=== PATIENT | male | born 1945 | race Caucasian/White ===

== ENCOUNTER 2018-10-17 14:55 | Inpatient (IN) | payer OTHER ==
[2018-10-17 16:06] LABS: Absolute Lymphocytes (CBC) 3.3 K/uL (0.7-4.9); Absolute Neutrophil 11.1 K/uL (1.8-8.0); Basophils % 0.7 % (0-1.3); Eosinophils % 31.6 % (0-4.4); Hematocrit 46.1 % (39.6-49.0); Lymphocytes % 14.4 % (15.3-44.8); MPV 9.2 fL (7.6-11.3); Monocytes % 4.5 % (3.3-12.3); RBC Red Blood Cell Count 5.27 M/uL (4.33-5.43)
[2018-10-17] MEDS ORDERED: METHYLPREDNISOLONE 125 MG INJ ONE (16:09)
[2018-10-17] MEDS ORDERED: NA CHLORIDE 0.9% 500 ML ONE (16:10)
[2018-10-17] MEDS ORDERED: DIPHENHYDRAMINE 50 MG/ML VIAL ONE (16:10)
[2018-10-17] MEDS ORDERED: FAMOTIDINE 20 MG/2 ML VIAL IV ONE (16:10)
[2018-10-17 16:23] LABS: Albumin 3.5 g/dL (3.4-5.0); Bilirubin Direct 0.2 mg/dL (0-0.2); Bilirubin Total 0.9 mg/dL (0.2-1.0); Potassium 4.2 mmol/L (3.5-5.1)
[2018-10-17 16:25] LABS: Magnesium 1.3 mg/dL (1.8-2.4)
--- NOTE | 2018-10-17 17:19 | RAD REPORT ---
EXAM DESCRIPTION: CT - Abdomen Pelvis Wo Contrast - 10/17/2018 5:07 pm CLINICAL HISTORY: Abdominal pain, vomiting, diarrhea COMPARISON: None. TECHNIQUE: Axial [address] imaging of the abdomen and pelvis was performed without IV contrast. No IV contrast was given because of allergy, abnormal renal function, patient refusal or physician re quest. No oral contrast administered. All CT scans are performed using dose optimization technique as appropriate and may include automated exposure control or mA/KV adjustment according to patient size. FINDINGS: No suspicious findings in the lung bases. The liver, spleen and pancreas show no suspicious findings on non-contrast imaging. Gallbladder and b iliary tree are also without suspicious finding. No hydronephrosis or suspicious renal mass. No significant adrenal finding. Isodense renal masses an d pyelonephritis cannot be excluded in the absence of IV contrast. Urinary bladder shows no suspiciou s finding. No gastric dilatation or wall thickening. Small hiatal hernia is present. Large and small bowel are n ot dilated. There are several fluid-filled small bowel loops and fluid in the right-side of the colon . The appendix is normal. No free air, free fluid or inflammatory stranding. No hernia, mass or bulky lymphadenopathy. No suspicious bony findings. IMPRESSION: No obstruction, free air or surgically emergent finding. Nondilated fluid-filled distal small bowel and right-sided colon. Findings are nonspecific. Nonspecif ic enteritis is possible. Full assessment is limited is the absence of IV contrast.
[2018-10-17] MEDS ORDERED: NA CHLORIDE 0.9% 1,000 ML ONE (17:29)
[2018-10-17] MEDS ORDERED: Magnesium Sulfate 2gm IVPB 2 G/50 ML BAG IV ONE (17:29)
--- NOTE | 2018-10-17 17:37 | ER ---
Nurse's Notes [facility] Name: Rajeev Tim Age: 73 yrs Sex: Male : 1945 Arrival Date: 10/17/2018 Time: 14:57 Bed 15 Private MD: Rajeev Ontiveros Diagnosis: Diarrhea, unspecified;Hypomagnesemia;Elevated white blood cell count Presentation: 10/17 15:13 Presenting complaint: Patient states: I have had diarrhea for the last two weeks, la1 vomited x1, two days ago I began having an itchy rash on my arms and legs and my lips started swelling today as well. Transition of care: patient was not received from another setting of care. Onset of symptoms was October 17, 2018. Risk Assessment: Do you want to hurt yourself or someone else? Patient reports no desire to harm self or others. Initial Sepsis Screen: Does the patient meet any 2 criteria? No. Patient's initial sepsis screen is negative. Does the patient have a suspected source of infection? No. Patient's initial sepsis screen is negative. Care prior to arrival: None. 15:13 Method Of Arrival: Ambulatory la1 15:13 Acuity: JACQUELINE 3 la1 Historical: - Allergies: 15:14 No Known Allergies; la1 - PMHx: 15:14 Diabetes - NIDDM; Hypertension; la1 - Immunization history:: Adult Immunizations up to date. - Social history:: Smoking status: Patient/guardian denies using tobacco. - Ebola Screening: : No symptoms or risks identified at this time. Screenin:15 Abuse screen: Denies threats or abuse. Denies injuries from another. Nutritional bp screening: No deficits noted. Tuberculosis screening: No symptoms or risk factors identified. Fall Risk None identified. Assessment: 15:15 General: Appears in no apparent distress. comfortable, slender, Behavior is calm, bp cooperative, appropriate for age. Pain: Denies pain. Neuro: Level of Consciousness is awake, alert, obeys commands, Oriented to person, place, time, situation, Appropriate for age. Cardiovascular: No deficits noted. Respiratory: Airway is patent Respiratory effort is even, unlabored, Respiratory pattern is regular, symmetrical. GI: Reports diarrhea. : No signs and/or symptoms were reported regarding the genitourinary system. EENT: No deficits noted. Derm: Rash noted that is red, raised. Musculoskeletal: Swelling present in right hand and left hand. 16:57 Reassessment: PT TO CT WITH SHARED SERVICES AND OUTSOURCING MANAGER. bp 19:00 Reassessment: BED ASSIGNED, ADMIT ON HOLD FOR SHIFT CHANGE. bp 19:15 Reassessment: Patient appears in no apparent distress at this time. No changes from jd3 previously documented assessment. Patient and/or family updated on plan of care and expected duration. Pain level reassessed. Patient is alert, oriented x 3, equal unlabored respirations, skin warm/dry/pink. Patient states feeling better. 20:08 Reassessment: Patient appears in no apparent distress at this time. Patient and/or jd3 family updated on plan of care and expected duration. Pain level reassessed. Patient is alert, oriented x 3, equal unlabored respirations, skin warm/dry/pink. Patient states feeling better. Vital Signs: 15:14 BP 143 / 81; Pulse 96; Resp 18; Temp 97.5; Pulse Ox 98% on R/A; Weight 79.83 kg; Height la1 6 ft. 0 in. (182.88 cm); 16:15 BP 155 / 83; Pulse 80; Resp 16; Pulse Ox 99% ; bp 18:00 BP 133 / 67; Pulse 76; Resp 16; Pulse Ox 99% ; bp 19:00 BP 106 / 77; Pulse 78; Resp 14; Pulse Ox 99% ; bp 20:08 BP 135 / 70; Pulse 75; Resp 16 S; Pulse Ox 97% on R/A; jd3 15:14 Body Mass Index 23.87 (79.83 kg, 182.88 cm) la1 ED Course: 14:57 Patient arrived in ED. as 14:57 Rajeev Ontiveros DO is Private Physician. as 15:13 Triage completed. la1 15:15 Arm band placed on left wrist. la1 15:15 Patient has correct armband on for positive identification. Placed in gown. Bed in low bp position. Call light in reach. Side rails up X2. 15:16 Amrik Toth PA is PHCP. cp 15:16 David Carrillo MD is Attending Physician. cp 15:31 Paco Lopez, TIFFANIE is Primary Nurse. bp 15:50 Inserted saline lock: 20 gauge in right antecubital area, using aseptic technique. bp wrist, using aseptic technique. Blood collected. 17:06 CT completed. Patient moved to CT. Patient moved back from CT. mw3 17:07 CT Abd/Pelvis - Without Cont: no oral contrast In Process Unspecified. EDMS 17:35 Laura Matute MD is Hospitalizing Provider. cp 19:57 No provider procedures requiring assistance completed. Patient admitted, IV remains in jd3 place. Administered Medications: 16:00 Drug: SOLU-Medrol 125 mg Route: IVP; Site: right antecubital; bp 16:56 Follow up: Response: No adverse reaction bp 16:00 Drug: Pepcid 20 mg Route: IVP; Site: right antecubital; bp 16:56 Follow up: Response: No adverse reaction bp 16:00 Drug: Benadryl 50 mg Route: IVP; Site: right antecubital; bp 16:56 Follow up: Response: No adverse reaction bp 16:00 Drug: NS 0.9% 500 ml Route: IV; Rate: bolus; Site: right antecubital; bp 20:12 Follow up: Response: No adverse reaction; IV Status: Completed infusion jd3 17:00 Drug: NS 0.9% 1000 ml Route: IV; Rate: 100 ml/hr; Site: right antecubital; bp 18:00 Follow up: IV Status: Completed infusion; IV Intake: 500ml bp 17:00 Drug: Magnesium Sulfate 2 grams Route: IVPB; Infused Over: 2 hrs; Site: right bp antecubital; 18:59 Follow up: IV Status: Completed infusion; IV Intake: 50ml bp 17:45 Drug: metroNIDAZOLE 500 mg Volume: 100 ml; Route: IVPB; Infused Over: 30 mins; Site: bp right antecubital; 20:09 Follow up: Response: No adverse reaction; IV Status: Completed infusion jd3 19:07 Drug: Cipro 400 mg Volume: 200 ml; Route: IVPB; Infused Over: 60 mins; Site: right jd3 antecubital; 20:11 Follow up: Response: No adverse reaction; IV Status: Completed infusion jd3 Intake: 18:00 IV: 500ml; Total: 500ml. bp 18:59 IV: 50ml; Total: 550ml. bp Outcome: 17:36 Decision to Hospitalize by Provider. cp 19:57 Admitted to Med/surg accompanied by tech, via stretcher, room 209, with chart, Report jd3 called to Anjelica MORENO 19:57 Condition: stable 19:57 Instructed on the need for admit, Demonstrated understanding of instructions. 20:13 Patient left the ED. hugo Signatures: Dispatcher [employer] Margot Ellis Lee RN RN la1 Amrik Toth PA PA cp Davies, Jonathon, RN RN jd3 Paco Lopez RN RN bp Willis, Michelle mw3 Corrections: (The following items were deleted from the chart) 15:15 15:13 Presenting complaint: Patient states: I have had diarrhea for the last two weeks, la1 vomited x1 la1
--- NOTE | 2018-10-17 17:37 | EDPHYS ---
Physician Documentation [facility] Name: Rajeev Tim Age: 73 yrs Sex: Male : 1945 Arrival Date: 10/17/2018 Time: 14:57 Bed 15 Private MD: Rajeev Ontiveros ED Physician David Carrillo HPI: 10/17 15:35 This 73 yrs old Male presents to ER via Ambulatory with complaints of cp Diarrhea. 15:35 The patient presents to the emergency department with diarrhea, 4-5 episodes per day. cp 15:35 Onset: The symptoms/episode began/occurred 2 week(s) ago, started after eating at [employer] restaurant. Associated signs and symptoms: Pertinent positives:. 15:35 The patient's rash thought to be caused by an unknown cause. cp 15:35 The rash is located on the right hand, left hand, right arm and left arm. The rash can cp be described as itchy. Associated signs and symptoms: Pertinent positives: swelling of lips, swelling of hands, Pertinent negatives: difficulty breathing, fever. Possible causes: unknown. Historical: - Allergies: 15:14 No Known Allergies; la1 - PMHx: 15:14 Diabetes - NIDDM; Hypertension; la1 - Immunization history:: Adult Immunizations up to date. - Social history:: Smoking status: Patient/guardian denies using tobacco. - Ebola Screening: : No symptoms or risks identified at this time. ROS: 15:40 Constitutional: Negative for body aches, chills, fever, poor PO intake. cp 15:40 Eyes: Negative for injury, pain, redness, and discharge. cp 15:40 ENT: Negative for drainage from ear(s), ear pain, sore throat, difficulty swallowing, difficulty handling secretions. 15:40 Cardiovascular: Negative for chest pain, edema, palpitations. 15:40 Respiratory: Negative for cough, shortness of breath, wheezing. 15:40 Abdomen/GI: Positive for diarrhea, Negative for nausea and vomiting, constipation, anorexia, black/tarry stool, rectal bleeding. 15:40 : Negative for urinary symptoms. 15:40 Skin: Positive for rash, swelling, of the right hand, left hand and mouth. 15:40 Neuro: Negative for altered mental status, headache, weakness. 15:40 All other systems are negative. Exam: 15:45 Constitutional: The patient appears in no acute distress, alert, awake, cp non-diaphoretic, non-toxic, well developed, well nourished. 15:45 Eyes: Pupils equal round and reactive to light, extra-ocular motions intact. Lids and cp lashes normal. Conjunctiva and sclera are non-icteric and not injected. Cornea within normal limits. Periorbital areas with no swelling, redness, or edema. 15:45 Head/face: Noted is swelling, that is mild, of the mouth. 15:45 ENT: External ear(s): are unremarkable, Ear canal(s): are normal, clear, TM's: are cp normal, Nose: is normal, Mouth: Lips: mild swelling upper lip, Posterior pharynx: Airway: no evidence of obstruction, patent, swelling, is not appreciated, erythema, is not appreciated, exudate, is not appreciated, Voice: is normal. 15:45 Neck: ROM/movement: is normal, is supple, without pain, no range of motions limitations, no nuchal rigidity. 15:45 Chest/axilla: Inspection: normal, Palpation: is normal, no crepitus, no tenderness. 15:45 Cardiovascular: Rate: normal, Rhythm: regular, Edema: is not appreciated, JVD: is not appreciated. 15:45 Respiratory: the patient does not display signs of respiratory distress, Respirations: normal, no use of accessory muscles, no retractions, no splinting, no tachypnea, labored breathing, is not present, Breath sounds: are clear throughout, no decreased breath sounds, no stridor, no wheezing. 15:45 Abdomen/GI: Inspection: abdomen appears normal, Bowel sounds: active, all quadrants, Palpation: abdomen is soft and non-tender, in all quadrants, rebound tenderness, is not appreciated, involuntary guarding, is not appreciated. 15:45 Skin: cellulitis, is not appreciated, no rash present. 15:45 Neuro: Orientation: to person, place \T\ time. Mentation: is normal, Cerebellar function: cp is grossly normal, Motor: moves all fours, strength is normal, Sensation: is normal. Vital Signs: 15:14 BP 143 / 81; Pulse 96; Resp 18; Temp 97.5; Pulse Ox 98% on R/A; Weight 79.83 kg; Height la1 6 ft. 0 in. (182.88 cm); 16:15 BP 155 / 83; Pulse 80; Resp 16; Pulse Ox 99% ; bp 18:00 BP 133 / 67; Pulse 76; Resp 16; Pulse Ox 99% ; bp 19:00 BP 106 / 77; Pulse 78; Resp 14; Pulse Ox 99% ; bp 20:08 BP 135 / 70; Pulse 75; Resp 16 S; Pulse Ox 97% on R/A; jd3 15:14 Body Mass Index 23.87 (79.83 kg, 182.88 cm) la1 MDM: 15:16 Patient medically screened. cp 17:29 Physician consultation: Laura Matute MD was called at 17:29, was contacted at 17:29, cp regarding admission, to the medical/surgical unit. patient's condition. 17:30 Data reviewed: vital signs, nurses notes, lab test result(s), radiologic studies, CT cp scan. 10/17 15:28 Order name: Basic Metabolic Panel; Complete Time: 16:34 cp 10/17 16:34 Interpretation: Normal except: CL 108; CO2 20; GLUC 144; BUN 29; CRE 1.50; GFR 46. cp 10/17 15:28 Order name: CBC with Diff cp 10/17 17:22 Interpretation: Normal except: WBC 22.8; LYM% 14.4; EOSINOPHIL % 31.6; NEUT A 11.1; cp EOSA 7.2. 10/17 15:28 Order name: Creatinine for Radiology; Complete Time: 16:34 cp 10/17 16:35 Interpretation: Reviewed. cp 10/17 15:28 Order name: Hepatic Function; Complete Time: 16:34 cp 10/17 15:28 Order name: Lipase; Complete Time: 16:34 cp 10/17 16:35 Interpretation: Abnormal: LIP 783. cp 10/17 15:28 Order name: Magnesium; Complete Time: 16:34 cp 10/17 16:35 Interpretation: Abnormal: MG 1.3. cp 10/17 16:29 Order name: Manual Differential EDMS 10/17 17:23 Order name: Urine Microscopic Only cp 10/17 17:35 Order name: Blood Culture EDMS 10/17 17:35 Order name: Clostridium difficile DNA EDMS 10/17 17:35 Order name: Fecal Leukocyte Stain EDMS 10/17 17:35 Order name: Lactate EDMS 10/17 17:35 Order name: Ova and Parasites EDMT 10/17 17:35 Order name: Stool Culture EDMT 10/17 15:28 Order name: IV Saline Lock; Complete Time: 16:05 cp 10/17 15:28 Order name: Labs collected and sent; Complete Time: 16:05 cp 10/17 16:39 Order name: CT Abd/Pelvis - Without Cont: no oral contrast; Complete Time: 17:22 cp Administered Medications: 16:00 Drug: SOLU-Medrol 125 mg Route: IVP; Site: right antecubital; bp 16:56 Follow up: Response: No adverse reaction bp 16:00 Drug: Pepcid 20 mg Route: IVP; Site: right antecubital; bp 16:56 Follow up: Response: No adverse reaction bp 16:00 Drug: Benadryl 50 mg Route: IVP; Site: right antecubital; bp 16:56 Follow up: Response: No adverse reaction bp 16:00 Drug: NS 0.9% 500 ml Route: IV; Rate: bolus; Site: right antecubital; bp 20:12 Follow up: Response: No adverse reaction; IV Status: Completed infusion jd3 17:00 Drug: NS 0.9% 1000 ml Route: IV; Rate: 100 ml/hr; Site: right antecubital; bp 18:00 Follow up: IV Status: Completed infusion; IV Intake: 500ml bp 17:00 Drug: Magnesium Sulfate 2 grams Route: IVPB; Infused Over: 2 hrs; Site: right bp antecubital; 18:59 Follow up: IV Status: Completed infusion; IV Intake: 50ml bp 17:45 Drug: metroNIDAZOLE 500 mg Volume: 100 ml; Route: IVPB; Infused Over: 30 mins; Site: bp right antecubital; 20:09 Follow up: Response: No adverse reaction; IV Status: Completed infusion jd3 19:07 Drug: Cipro 400 mg Volume: 200 ml; Route: IVPB; Infused Over: 60 mins; Site: right jd3 antecubital; 20:11 Follow up: Response: No adverse reaction; IV Status: Completed infusion jd3 Disposition: 10/18 12:03 Co-signature as Attending Physician, David Carrillo MD. Disposition: 10/17/18 17:36 Hospitalization ordered by Laura Matute for Observation. Preliminary diagnosis are Diarrhea, unspecified, Hypomagnesemia, Elevated white blood cell count. - Bed requested for Telemetry/MedSurg (observation). - Status is Observation. jd3 - Condition is Stable. - Problem is new. - Symptoms have improved. UTI on Admission? No Signatures: Dispatcher [employer] EDMS Sung Parsons RN RN la1 Amrik Toth PA PA cp David Carrillo MD MD gs Davies, Jonathon, RN RN jd3 Paco Lopez RN RN bp Botello, Elizabeth eb Corrections: (The following items were deleted from the chart) 10/17 17:22 16:35 Normal except: WBC 22.8; LYM% 14.4; EOSINOPHIL % 31.6. cp cp 18:35 17:36 Hospitalization Ordered by Laura Matute MD for Observation. Preliminary eb diagnosis is Diarrhea, unspecified; Hypomagnesemia; Elevated white blood cell count. Bed requested for Telemetry/MedSurg (observation). Status is Observation. Condition is Stable. Problem is new. Symptoms have improved. UTI on Admission? No. cp 20:13 18:35 10/17/2018 17:36 Hospitalization Ordered by Laura Matute MD for Observation. jd3 Preliminary diagnosis is Diarrhea, unspecified; Hypomagnesemia; Elevated white blood cell count. Bed requested for Telemetry/MedSurg (observation). Status is Observation. Condition is Stable. Problem is new. Symptoms have improved. UTI on Admission? No. eb
--- NOTE | 2018-10-17 17:57 | P.HP ---
Certification for Inpatient Patient admitted to: Inpatient With expected LOS: >2 Midnights Patient will require the following post-hospital care: None Practitioner: I am a practitioner with admitting privileges, knowledge of patient current condition, hospital course, and medical plan of care. Services: Services provided to patient in accordance with Admission requirements found in Title 42 Section 412.3 of the Code of Federal Regulations Patient History Date of Service: 10/17/18 Primary Care Provider: Dr Nino Reason for admission: Swelling lips History of Present Illness: This is a 73 Y/O m with pmhx of HTN, Diabetes who presented to the ED for swelling of his lips. Pt states that after eating at [employer] on Thursday he started having Diarrhea. His diarrhea is water in nature. No Blood noted. He also started noticing Rash and BL LE Swelling yesterday along with itching. He thus decided to benadryl however it was since 2012. He then Today started noticing that his lower lip swollow up and then hour later his upper lip started swelling. He thus decided to come to the ER. No n/V or fever noted In the ER pt was found to have angioedema and BL Hand swelling and genealized Rash. He was thus admitted to the Hospital for Sepsis and Allergic Reaction. Allergies No Known Allergies Allergy (Verified 01/27/17 09:09) Home medications list reviewed: Yes - Past Medical/Surgical History Has patient received pneumonia vaccine in the past: Yes Diabetic: Yes -: HTN -: Diabetes Past Surgical History: Reviewed- Non-Contributory - Family History Family History: Reviewed- Non-Contributory - Social History Smoking Status: Former smoker Counseled patient to stop smoking for: more than 10 minutes Smoking therapy provided: Yes Patient receptive to therapy: Yes Alcohol use: No CD- Drugs: No Caffeine use: No Place of Residence: Home Review of Systems 10-point ROS is otherwise unremarkable Physical Examination - Physical Exam General: Alert, In no apparent distress, Oriented x3 HEENT: Other (Facial Swelling with Lower and upper Lip Swelling noted. ) Neck: Supple Respiratory: Clear to auscultation bilaterally, Normal air movement Cardiovascular: Regular rate/rhythm, Normal S1 S2 Gastrointestinal: Normal bowel sounds, No tenderness Musculoskeletal: Other (BL hand Swelling noted with 2 + edema) Integumentary: Rash(es) (small Generalized rash noted ) Neurological: Normal speech, Normal strength at 5/5 x4 extr, Normal tone Lymphatics: No axilla or inguinal lymphadenopathy - Studies Laboratory Data (last 24 hrs) 10/17/18 15:50: Creatinine 1.50 H 10/17/18 15:50: WBC 22.8 H*, Hgb 15.7, Hct 46.1, Plt Count 230 10/17/18 15:50: Sodium 138, Potassium 4.2, BUN 29 H, Creatinine 1.50 H, Glucose 144 H, Magnesium 1.3 L*, Total Bilirubin 0.9, AST 17, ALT 24, Alkaline Phosphatase 149 H, Lipase 783 H Assessment and Plan - Problems (Diagnosis) (1) Sepsis Current Visit: Yes Status: Acute Plan: Sepsis most likely 2.2 to Eosinophillic Gastroenteritis -IV fluids with Cipro and flagyl -Blood ,urine, and Stool culture pending at this time -Will monitor closely Qualifiers: Sepsis type: sepsis due to unspecified organism Qualified Code(s): A41.9 - Sepsis, unspecified organism (2) Allergic reaction Current Visit: Yes Status: Acute Plan: Allergic Reaction to Food vs Medication that is -No New medication, Lisinopril has been home medication for over 20 years. -Benadryl that patient took at [facility] was -Will monitor closely. Start on PRN benadryl. Was given 1x dose of Solumedrol in ED Qualifiers: Encounter type: initial encounter Qualified Code(s): T78.40XA - Allergy, unspecified, initial encounter (3) Diarrhea Current Visit: Yes Status: Acute Plan: Diarrhea most likely from Gastroenteritis -Stool culture collected and pending -IV cipro and flagyl at this time Qualifiers: Diarrhea type: presumed infectious Qualified Code(s): R19.7 - Diarrhea, unspecified (4) HTN (hypertension) Current Visit: Yes Status: Chronic Qualifiers: Hypertension type: essential hypertension Qualified Code(s): I10 - Essential (primary) hypertension (5) Diabetes Current Visit: Yes Status: Chronic Qualifiers: Diabetes mellitus type: type 2 Diabetes mellitus correction insulin use: without assistant terminal manager use Diabetes mellitus complication status: without complication Qualified Code(s): E11.9 - Type 2 diabetes mellitus without complications Discharge Plan: Home Plan to discharge in: 48 Hours - Advance Directives Does patient have a Living Will: No Does patient have a Durable POA for Healthcare: No - Code Status/Comfort Care Code Status Assessed: Yes Critical Care: No
[2018-10-17 18:12] LABS: Blood Morphology Comment NOT SEEN (NOT SEEN); Platelet Estimate ADEQ
[2018-10-17] MEDS ORDERED: D50W 25 GM/50 ML SYRINGE IV PRN (20:05)
[2018-10-17] MEDS ORDERED: ONDANSETRON 4 MG/2 ML VIAL IV PRN (20:05)
[2018-10-17] MEDS ORDERED: GLUCAGON 1 MG/VIAL IM PRN (20:05)
[2018-10-17] MEDS: METRONIDAZOLE 500mg IVPB 500 MG/100 ML BAG IV SCH (20:30)
[2018-10-17] MEDS: INSULIN -REGULAR HUMAN 50 UNIT/0.5 ML ML SQ SCH (21:00)
[2018-10-17] MEDS: NA CHLORIDE 0.9% 1,000 ML IV SCH (21:20)
[2018-10-17] MEDS: CIPROFLOXACIN 400mg IV 400 MG/200 ML BAG IV SCH (21:20)
[2018-10-17 22:20] LABS: Urine Appearance CLEAR; Urine Bilirubin NEGATIVE (NEG); Urine Blood NEGATIVE (NEG); Urine Color YELLOW; Urine Glucose TRACE (NEG); Urine Protein NEGATIVE (NEG); Urine Specific Gravity <=1.005 (1.005-1.030); Urine Urobilinogen 0.2 mg/dL (0.2-1.0)
[2018-10-17 22:28] LABS: Urine Bacteria NONE SEEN /HPF (NONE SEEN); Urine Culture Reflex Order NOT NEEDED; Urine RBC NONE SEEN /HPF (NONE SEEN)
[2018-10-18] MEDS: METRONIDAZOLE 500mg IVPB 500 MG/100 ML BAG IV SCH ×4 (00:23→18:10)
[2018-10-18] MEDS: DIPHENHYDRAMINE 25 MG TAB/CAP PO PRN ×3 (01:36→18:14)
[2018-10-18] MEDS: NA CHLORIDE 0.9% 1,000 ML IV SCH ×2 (05:25→14:00)
[2018-10-18 06:13] LABS: Absolute Lymphocytes (CBC) 1.8 K/uL (0.7-4.9); Absolute Monocytes 0.3 K/uL (0.1-1.3); Absolute Neutrophil 10.4 K/uL (1.8-8.0); Basophils % 0.2 % (0-1.3); Eosinophils % 2.5 % (0-4.4); Hematocrit 36.8 % (39.6-49.0); MPV 9.3 fL (7.6-11.3); Monocytes % 2.7 % (3.3-12.3); RBC Red Blood Cell Count 4.27 M/uL (4.33-5.43)
[2018-10-18 06:19] LABS: Magnesium 1.7 mg/dL (1.8-2.4)
[2018-10-18 06:24] LABS: Albumin 2.8 g/dL (3.4-5.0); Bilirubin Total 0.6 mg/dL (0.2-1.0); Potassium 4.3 mmol/L (3.5-5.1)
[2018-10-18] MEDS: INSULIN -REGULAR HUMAN 50 UNIT/0.5 ML ML SQ SCH ×4 (07:30→21:00)
[2018-10-18] MEDS: CIPROFLOXACIN 400mg IV 400 MG/200 ML BAG IV SCH ×2 (07:48→22:11)
[2018-10-18] MEDS ORDERED: INFLUENZA VACCINE (for 3y+) 0.5 ML DOSE IMVAC ONE (08:00)
[2018-10-18] MEDS ORDERED: PNEUMOCOCCAL VACCINE 0.5 ML IMVAC ONE (08:00)
[2018-10-18] MEDS ORDERED: MAGNESIUM SULFATE 1 gm IVPB 1 GM/100 ML BAG IV ONE (09:00)
--- NOTE | 2018-10-18 09:45 | P.PN ---
Subjective Date of Service: 10/18/18 Primary Care Provider: Dr Nino Chief Complaint: Swelling lips Patient seen and examined at bedside with RN. Chart reviewed. Case discussed with patient at bedside during grand rounds. This morning patient is still complaints to offer. Diarrhea has resolved. Swelling is getting better. States that his itching however is still there. No other complaints to offer at this time. Review of Systems 10-point ROS is otherwise unremarkable Physical Examination - Vital Signs Temperature: 97.1 F Blood Pressure: 147/70 Pulse: 75 Respirations: 15 Pulse Ox (%): 99 - Physical Exam General: Alert, In no apparent distress HEENT: Atraumatic, Other (Lower lip the back to baseline. Upper lip still with swelling.) Neck: Supple, JVD not distended Respiratory: Clear to auscultation bilaterally, Normal air movement Cardiovascular: Regular rate/rhythm, Normal S1 S2 Gastrointestinal: Normal bowel sounds, No tenderness Musculoskeletal: Swelling (Bilateral upper hand swelling noted. Improvement since yesterday. Dry flaky skin noted as well.) Integumentary: No rashes Neurological: Normal speech, Normal tone, Normal affect Lymphatics: No axilla or inguinal lymphadenopathy - Studies Laboratory Data (last 24 hrs) 10/17/18 15:50: Creatinine 1.50 H 10/17/18 15:50: WBC 22.8 H*, Hgb 15.7, Hct 46.1, Plt Count 230 10/17/18 15:50: Sodium 138, Potassium 4.2, BUN 29 H, Creatinine 1.50 H, Glucose 144 H, Magnesium 1.3 L*, Total Bilirubin 0.9, AST 17, ALT 24, Alkaline Phosphatase 149 H, Lipase 783 H Medications List Reviewed: Yes Assessment And Plan - Current Problems (Diagnosis) (1) Sepsis Current Visit: Yes Status: Acute Plan: Sepsis most likely 2.2 to Eosinophillic Gastroenteritis -WBC trending down today. -IV fluids with Cipro and flagyl -Blood ,urine, and Stool culture pending at this time -Will monitor closely Qualifiers: Sepsis type: sepsis due to unspecified organism Qualified Code(s): A41.9 - Sepsis, unspecified organism (2) Allergic reaction Current Visit: Yes Status: Acute Plan: Allergic Reaction to Food vs Medication that is -No New medication, Lisinopril has been home medication for over 20 years. Will hold it at this time however -Benadryl that patient took at [facility] was -Will monitor closely. -Start on PRN benadryl. Was given 1x dose of Solumedrol in ED -if itching still continues and swelling not improved will give 1 more dose of steroids today Qualifiers: Encounter type: initial encounter Qualified Code(s): T78.40XA - Allergy, unspecified, initial encounter (3) Diarrhea Current Visit: Yes Status: Acute Plan: Diarrhea most likely from Gastroenteritis -Stool culture collected and pending -IV cipro and flagyl at this time -diarrhea is improved today. -Patient's diet advanced to a soft diet Qualifiers: Diarrhea type: presumed infectious Qualified Code(s): R19.7 - Diarrhea, unspecified (4) HTN (hypertension) Current Visit: Yes Status: Chronic Qualifiers: Hypertension type: essential hypertension Qualified Code(s): I10 - Essential (primary) hypertension (5) Diabetes Current Visit: Yes Status: Chronic Qualifiers: Diabetes mellitus type: type 2 Diabetes mellitus keno terminal operator insulin use: without keno terminal operator use Diabetes mellitus complication status: without complication Qualified Code(s): E11.9 - Type 2 diabetes mellitus without complications - Plan Pending clinical improvement at this time. Awaiting stool cultures results at this time. If no improvement in upper lip swelling today will consider giving 1 dose of steroids. Will monitor patient closely here in the hospital. Discharge Plan: Home Plan to discharge in: 48 Hours - Code Status/Comfort Care Code Status Assessed: Yes Critical Care: No
[2018-10-18] MEDS ORDERED: DIPHENHYDRAMINE 25 MG TAB/CAP PO ONE (10:00)
[2018-10-18] MEDS ORDERED: predniSONE 20 MG TAB PO ONE (18:18)
[2018-10-18] MEDS: ATORVASTATIN 20 MG TAB PO SCH (22:10)
[2018-10-18] MEDS: CARVEDILOL 25 MG TAB PO SCH (22:11)
[2018-10-19] MEDS: DIPHENHYDRAMINE 25 MG TAB/CAP PO PRN ×2 (00:06→05:31)
[2018-10-19] MEDS: METRONIDAZOLE 500mg IVPB 500 MG/100 ML BAG IV SCH ×5 (00:09→23:34)
[2018-10-19] MEDS: NA CHLORIDE 0.9% 1,000 ML IV SCH ×4 (05:34→20:57)
[2018-10-19 06:12] LABS: Absolute Lymphocytes (CBC) 1.7 K/uL (0.7-4.9); Absolute Monocytes 0.8 K/uL (0.1-1.3); Absolute Neutrophil 14.1 K/uL (1.8-8.0); Basophils % 0.1 % (0-1.3); Eosinophils % 0.3 % (0-4.4); Hematocrit 34.4 % (39.6-49.0); Lymphocytes % 10.3 % (15.3-44.8); MPV 9.4 fL (7.6-11.3); Monocytes % 4.9 % (3.3-12.3); RBC Red Blood Cell Count 3.99 M/uL (4.33-5.43)
[2018-10-19 06:26] LABS: Albumin 2.8 g/dL (3.4-5.0); Bilirubin Total 0.5 mg/dL (0.2-1.0); Magnesium 2.1 mg/dL (1.8-2.4); Potassium 4.3 mmol/L (3.5-5.1); Protein, Total 5.7 g/dL (6.4-8.2)
[2018-10-19] MEDS: INSULIN -REGULAR HUMAN 50 UNIT/0.5 ML ML SQ SCH ×4 (07:30→21:00)
[2018-10-19] MEDS: CIPROFLOXACIN 400mg IV 400 MG/200 ML BAG IV SCH ×2 (09:45→20:57)
[2018-10-19] MEDS: CARVEDILOL 25 MG TAB PO SCH ×2 (09:45→20:58)
[2018-10-19] MEDS: DIPHENHYDRAMINE 50 MG/ML VIAL IV PRN ×3 (11:35→23:34)
[2018-10-19] MEDS: PANTOPRAZOLE 40MG TABLET PO SCH (13:40)
--- NOTE | 2018-10-19 15:40 | PN ---
Date of Progress Note: 10/19/2018 Subjective: The patient is seen and examined. Chart reviewed and case discussed with RN. The patie nt does report itching and rash that has improved since admission. Code Status: Full. Physical Examination: Vital Signs: Temperature 97.2, heart rate 64, blood pressure 173/83, respirations 17, O2 100% on elsy m air. General: Awake, alert, oriented x3, elderly male, in some mild distress. CV: S1 and S2. Regular rate and rhythm. Peripheral pulses present. Respiratory: Clear to auscultation bilaterally. No wheezing or stridor. Gastrointestinal: Abdomen is soft, nontender, nondistended. Positive bowel sounds. Extremities: No clubbing, cyanosis, or edema. Neuro: Cranial nerves 2 through 12 intact grossly. No focal neurological deficit. Skin: The patient does have some macular rash around his lateral chest wall as well as his underarm. Laboratory Data: Sodium 144, potassium 4.3, chloride 115, CO2 22, BUN 25, creatinine 1.11, glucose 1 84, calcium 8.3, magnesium 2.1. WBC 16.7, H and H 11.8 and 34.4, platelets 219, neutrophils 84%. Bl ood cultures, no growth to date. C diff assay is negative. Stool cultures and ova and parasites pen ding. 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 We will continue IV antibiotics. Stool culture is pending. Clostridium difficile is negative. White count initially trended down, now elevated li markell due to steroids. 2.Allergic reaction, possibly to food versus medication. The patient took Benadryl that was . Has been on lisinopril for over 20 years. At this juncture, we will continue to monitor c losely. Start on Benadryl. The patient also received Solu-Medrol in the ER. 3.Acute diarrhea, likely from gastroenteritis. Stool culture studies are pending. Continue Cipro a nd Flagyl. Clostridium difficile is negative. 4.Essential hypertension, stable. 5.Diabetes mellitus type 2 with long-term use of insulin with hyperglycemia. We will continue slidi ng scale insulin and monitor blood glucose levels. 6.Hypomagnesemia, corrected. We will continue to monitor. Plan: Follow up on culture results. If the patient continues to improve, will likely DC in the next 24 hours. We will check a TSH and LUÍS screen. /ALYSHA Voice ID: [id number] Report ID: [id number]
[2018-10-19] MEDS: ATORVASTATIN 20 MG TAB PO SCH (20:57)
[2018-10-20] MEDS: PANTOPRAZOLE 40MG TABLET PO SCH (05:12)
[2018-10-20] MEDS: NA CHLORIDE 0.9% 1,000 ML IV SCH (05:12)
[2018-10-20] MEDS: DIPHENHYDRAMINE 50 MG/ML VIAL IV PRN (05:12)
[2018-10-20] MEDS: METRONIDAZOLE 500mg IVPB 500 MG/100 ML BAG IV SCH ×4 (05:12→23:43)
[2018-10-20 06:14] LABS: Absolute Monocytes 0.6 K/uL (0.1-1.3); Absolute Neutrophil 6.4 K/uL (1.8-8.0); Basophils % 0.4 % (0-1.3); Eosinophils % 4.2 % (0-4.4); Hematocrit 37.8 % (39.6-49.0); Lymphocytes % 28.3 % (15.3-44.8); MPV 9.1 fL (7.6-11.3); Monocytes % 6.1 % (3.3-12.3); RBC Red Blood Cell Count 4.32 M/uL (4.33-5.43)
[2018-10-20 06:43] LABS: Albumin 2.8 g/dL (3.4-5.0); Bilirubin Total 0.7 mg/dL (0.2-1.0); Potassium 3.9 mmol/L (3.5-5.1); Protein, Total 5.7 g/dL (6.4-8.2)
[2018-10-20 06:48] LABS: Thyroid Stimulating Hormone 4.62 uIU/mL (0.360-3.740)
[2018-10-20] MEDS ORDERED: METHYLPREDNISOLONE 125 MG INJ IV ONE (07:00)
[2018-10-20] MEDS: INSULIN -REGULAR HUMAN 50 UNIT/0.5 ML ML SQ SCH ×4 (07:30→20:35)
[2018-10-20 07:36] LABS: Blood Morphology Comment NOT SEEN (NOT SEEN); Platelet Estimate ADEQ; Urine White Blood Cell Casts OK
[2018-10-20] MEDS ORDERED: POTASSIUM CL SA 10 MEQ TAB PO ONE (08:26)
[2018-10-20] MEDS: CIPROFLOXACIN 400mg IV 400 MG/200 ML BAG IV SCH ×2 (09:16→20:35)
[2018-10-20] MEDS: CARVEDILOL 25 MG TAB PO SCH ×2 (09:16→20:35)
[2018-10-20] MEDS ORDERED: NS 0.9% VIAL 0 ML ONE (15:13)
--- NOTE | 2018-10-20 17:14 | CON ---
Reason For Consultation: I was consulted for generalized rash to his body. History Of Present Illness: The patient is a 73-year-old male with significant history of hypertensi on, diabetes mellitus, otherwise healthy person, coming in with diarrhea, which is started after he h ad food about a week ago at [employer]. The patient denies any other problems. He also took some Benadr yl because of his rash. His Benadryl was in 2017. The patient denies any other problems at this time. No fever, rashes, getting better after the patient had steroid shots. The patient is als o getting Cipro and Flagyl IV. Past Medical History: Hypertension, diabetes mellitus. Social History: Nonsmoker, nondrinker. Family History: Noncontributory. Medications: Cipro, Flagyl. See [facility] for other medication. Allergies: NO KNOWN DRUG ALLERGIES. Review of Systems: A 10-point review was performed. Physical Examination: General: This is a 73-year-old male, lying in bed, not in any acute cardiopulmonary distress. Vital Signs: Temperature 97, pulse 61, respiration 15, blood pressure 149/72. HEENT: Unremarkable. Neck: Supple. Lungs: Basal crackles. Heart: S1, S2. Regular. Abdomen: Soft, nontender. Bowel sounds hyperactive. Extremities: No edema. Small macular erythematous patches noted all across the body. Laboratory Data: CT abdomen and pelvis done shows no obstruction, nondilated fluid-filled distal sma ll bowel and right-sided colon. Finding are nonspecific. Full assessment is not available because o f no IV contrast. WBC 10,000 down from 22,000, hemoglobin 13, platelets are 240. On initial CBC, th e patient had eosinophil of 29, now 4.2. Chemistry shows sodium 146, potassium 3.9, chloride 114, bi carb 25, BUN 22, creatinine 1.1, glucose 115. Micro data shows blood cultures are negative for 24 ho ur. C diff toxins are negative. Ova and parasite pending. Culture and sensitivity are pending. Assessment And Plan: Allergic dermatitis, diarrhea, leukocytosis, eosinophilia, most likely secondar y to allergic reaction. Recommend to continue Cipro and Flagyl and Medrol Dosepak. Possible irritab le bowel syndrome. We will follow the patient as needed. The patient needs to have GI workup done o nce discharged. We will follow the patient as needed. Thank you Dr. Merida for consult. RIKKI/ALYSHA Voice ID: [id number] Report ID: [id number]
--- NOTE | 2018-10-20 17:23 | PN ---
Subjective: The patient is seen and examined. Chart reviewed and case discussed with RN and Dr. Hernandez harris. The patient continues to have spreading of his rash. Continues to itch. Does have some abdomi nal discomfort. Medications: List reviewed. Physical Examination: Vital Signs: Temperature 97, heart rate 61, blood pressure 149/72, respirations 15, O2 99% on room a ir. General: Awake, alert, and oriented x3. Elderly male, somewhat ill-appearing, in distress. CV: S1, S2. Regular rate and rhythm. Peripheral pulses present. Respiratory: Moving air well bilaterally. No wheezing or stridor. Gastrointestinal: Abdomen is soft. Hyperactive bowel sounds. No tenderness to palpation. Extremities: No clubbing, cyanosis, or edema. Neurologic: Nonfocal. Skin: Diffuse macular rash, now spreading to the chest, trunk, back and legs, which is nonblanching. Laboratory Data: Sodium 146, potassium 3.9, chloride 114, CO2 25, BUN 22, creatinine 1.11, glucose 1 15, calcium 7.9, albumin 2.8. TSH 4.6, free T4 of 1.19. WBC 10.4, H and H 13 and 37.8, platelets 24 0, neutrophils 61%, eosinophils 4.2. LUÍS screen is pending. Wound blood cultures also pending. Sto ol culture, no Salmonella or Shigella. Ova and parasites are also pending. 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 We will continue IV antibiotics. Stool culture showed no Shigella or Salmonella. Clostridium difficile ruled out. White count normalized, improvi ng. 2.Allergic reaction, possibly to food versus medication, specifically Benadryl. We will hol d off on Benadryl for now. Continue with steroids. 3.Acute diarrhea, likely secondary to gastroenteritis. Ova and parasites pending. We will continue Cipro and Flagyl. Appreciate Infectious Disease input. 4.Rash secondary to allergic reaction. 5.Essential hypertension, stable. 6.Diabetes mellitus type 2 with long-term use of insulin with hyperglycemia. We will continue slidi ng scale insulin and monitor blood glucose levels. 7.Hypernatremia. We will discontinue IV fluids, normal saline and monitor. 8.Hyperthyroidism. TSH is elevated. We will start on low-dose levothyroxine. The patient to have repeat TSH in 6 to 8 weeks. Plan: If the patient continues to improve, symptoms resolved, and rash improves along with symptoms of abdominal pain and discomfort, then discharge in a.m. /ALYSHA Voice ID: [id number] Report ID: [id number]
[2018-10-20] MEDS: predniSONE 20 MG TAB PO SCH (20:35)
[2018-10-20] MEDS: ATORVASTATIN 20 MG TAB PO SCH (20:35)
[2018-10-21] MEDS ORDERED: TRAZODONE 50 MG TABLET PO ONE (00:18)
[2018-10-21] MEDS ORDERED: DIPHENHYDRAMINE 50 MG/ML VIAL IV ONE (00:23)
[2018-10-21] MEDS: METRONIDAZOLE 500mg IVPB 500 MG/100 ML BAG IV SCH ×2 (05:27→12:00)
[2018-10-21] MEDS: PANTOPRAZOLE 40MG TABLET PO SCH (05:27)
[2018-10-21 06:22] LABS: Absolute Lymphocytes (CBC) 1.1 K/uL (0.7-4.9); Absolute Monocytes 0.5 K/uL (0.1-1.3); Absolute Neutrophil 9.3 K/uL (1.8-8.0); Basophils % 0.1 % (0-1.3); Eosinophils % 0.1 % (0-4.4); Lymphocytes % 10.4 % (15.3-44.8); MPV 8.9 fL (7.6-11.3); Monocytes % 4.2 % (3.3-12.3); RBC Red Blood Cell Count 4.16 M/uL (4.33-5.43)
[2018-10-21] MEDS ORDERED: LEVOTHYROXINE SOD 0.125 MG TAB PO SCH (06:30)
[2018-10-21 06:44] LABS: Albumin 3.1 g/dL (3.4-5.0); Bilirubin Total 0.7 mg/dL (0.2-1.0); Phosphorus 3.6 mg/dL (2.5-4.9); Potassium 3.9 mmol/L (3.5-5.1); Protein, Total 6.1 g/dL (6.4-8.2)
[2018-10-21] MEDS ORDERED: POTASSIUM CL SA 10 MEQ TAB PO ONE (09:00)
[2018-10-21] MEDS: INSULIN -REGULAR HUMAN 50 UNIT/0.5 ML ML SQ SCH ×2 (09:28→12:29)
[2018-10-21] MEDS: CIPROFLOXACIN 400mg IV 400 MG/200 ML BAG IV SCH (09:28)
[2018-10-21] MEDS: CARVEDILOL 25 MG TAB PO SCH (09:29)
[2018-10-21] MEDS: predniSONE 20 MG TAB PO SCH (09:29)
--- NOTE | 2018-10-22 06:42 | DS ---
Date of Discharge: 10/21/2018 Consultants: Dr. Inder Adams with Infectious Disease. 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 2.Allergic reaction to food versus medication. 3.Diarrhea secondary to gastroenteritis. 4.Essential hypertension. 5.Diabetes mellitus type 2 with hyperglycemia without long-term use of insulin. 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 2.Allergic reaction to food versus possible medication. 3.Acute diarrhea secondary to gastroenteritis. 4.Rash secondary to allergic reaction. 5.Essential hypertension, stable. 6.Type 2 diabetes mellitus without long-term use of insulin with hyperglycemia. 7.Hypernatremia, resolved. 8.Hypothyroidism started on levothyroxine. Hospital Course: The patient is a 73-year-old male, who comes into the hospital with swelling of his lips. The patient does take lisinopril, has been taking it for 20 years. Antecedent event was eati ng at [employer], which initiated some diarrhea. The patient also had some rash. Also took some Benadryl. The patient came into the ER. His workup showed sepsis secondary to eosinophilic gastroe nteritis. He was started on Cipro and Flagyl. Cultures were obtained, which remained negative. His C diff assay was negative. Stool culture did not show any Salmonella, Shigella, or Campylobacter. Ova and parasites were still pending. His eosinophils did improve and trend down. His white count a lso normalized. The patient was seen by Infectious Disease. His rash was thought to be due to aller gic reaction to the food versus the medication, to possibly some preservative in the medicati on. Overall, the patient did well during the course of the hospital stay. He did not have any furth er lip swelling or shortness of breath. No difficulty breathing or difficulty swallowing. The patie nt did not have those symptoms to begin with. The patient will be stopping his lisinopril due to pos sibility of delayed reaction secondary to lisinopril. He will finish off the course of steroid taper , and he was diagnosed with hypothyroidism as his TSH was high, and he will need to be on levothyroxi ne. He will need a followup TSH level in 6 to 8 weeks. The patient was then discharged home in stab le condition. Activity: As tolerated. Medications: As per medication reconciliation list. Followup: Follow up with primary care physician in 2 to 3 days. Return to ER for worsening conditio n. Diet: Heart healthy. Physical Examination: General: Awake, alert, oriented x3. No acute distress. Elderly male. CV: S1, S2. No murmurs. Respiratory: Moving air well bilaterally. Abdomen: Soft, nontender, nondistended. Positive bowel sounds. Extremities: No clubbing, cyanosis, or edema. Neurologic: Nonfocal. Skin: Rash significantly improved. Minimal rash on the palms. Total time spent discharging the patient was 35 minutes. EDUARDO Voice ID: [id number] Report ID: [id number]
== END 2018-10-21 12:33 | disposition home or self-care (01) | DRG 872 ==
LOC: ER 14:55 → ERHOLD 17:34 → 2ND 19:57
PROVIDERS: ADMIT Family Medicine; ATTEND Family Medicine
DX: A41.9 Sepsis, unspecified organism (principal); E87.0 Hyperosmolality and hypernatremia; K52.81 Eosinophilic gastritis or gastroenteritis; A08.8 Other specified intestinal infections; I10 Essential (primary) hypertension; E11.65 Type 2 diabetes mellitus with hyperglycemia; Z79.84 Long term (current) use of oral hypoglycemic drugs; R21 Rash and other nonspecific skin eruption; E03.9 Hypothyroidism, unspecified; T50.995A Adverse effect of other drugs, medicaments and biological substances, initial encounter; E83.42 Hypomagnesemia; Z87.891 Personal history of nicotine dependence
CPT/HCPCS: 36415; 74176; 80048; 80053; 80076; 81001; 82962; 83605; 83690; 83735; 84100; 84439; 84443; 85025; 86038; 87040; 87045; 87046; 87177; 87209; 87493; 89055; 90670; 96361; 96365; 96367; 96375; 99285; G0009; J0744; J2930; J3475; J7030; J7512